=== PATIENT | male | born 1975 | race Caucasian/White ===

== ENCOUNTER 2021-10-12 10:45 | Emergency (ER) | payer OTHER ==
[~2021-10-12] VITALS: Ht 182.9 cm; Wt 147.4 kg
[~2021-10-12 10:45] MED LIST: ATIVAN1 MG PO; AUGMENTIN 875-1 EACH PO; CENTANY30 GM TP; COPAXONE40 MG/1 ML SQ; FENOFIBRIC ACI135 MG PO; FISH OIL 1,001000 M2 PO; FOLIC ACID0.8 MG PO; GABAPENTIN 100100 MG PO; JANUVIA 50 MG T50 M1 PO; LIORESAL 10 MG10 MG PO; METOPROLOL ER-1 EAC1 PO; MOBIC15 MG PO; NATEGLINIDE120 MG PO; NORCO 5-325 TA1 EACH PO; PAXIL10 MG PO; PIOGLITAZONE15 MG; PRILOSEC 20 MG20 MG PO; VITAMIN D 5050000 I1 PO; ZOFRAN ODT4 MG PO
[2021-10-12] MEDS ORDERED: [UNRECOGNIZED DRUG - OTHER] (11:05)
[2021-10-12] MEDS ORDERED: JANTOVEN5 MG PO (11:06)
[2021-10-12] MEDS ORDERED: COZAAR 25 MG TA25 M1 PO (11:07)
[2021-10-12] MEDS ORDERED: BUPROPION HCL100 MG PO (11:07)
[2021-10-12] MEDS ORDERED: OZEMPIC1 MG/0.71 SUBQ (11:07)
[2021-10-12] MEDS ORDERED: DILTIAZEM ER180 M2 PO (11:07)
[2021-10-12] MEDS ORDERED: APAP W/CODEINE1 TA2 PO (11:08)
[2021-10-12] MEDS ORDERED: PENICILLIN V P500 MG PO (12:06)
[2021-10-12] MEDS ORDERED: ZOFRAN ODT4 MG PO (12:06)
[2021-10-12] MEDS ORDERED: HYDROCODON-ACE1 EAC7 PO (12:08)
[2021-10-12 12:21] VITALS: BP 151/89
[2021-10-12 12:25] LABS: INFLUENZA A ANTIGEN Negative (Negative); INFLUENZA B ANTIGEN Negative (Negative)
== END 2021-10-12 12:22 | disposition home or self-care (01) ==
LOC: M.ERS 10:45
PROVIDERS: Nurse Practitioner Family
DX: K04.7 Periapical abscess without sinus (principal); Z20.822 Contact with and (suspected) exposure to COVID-19; J02.9 Acute pharyngitis, unspecified; E11.9 Type 2 diabetes mellitus without complications; I10 Essential (primary) hypertension; F41.9 Anxiety disorder, unspecified; K21.9 Gastro-esophageal reflux disease without esophagitis; Z79.899 Other long term (current) drug therapy; Z79.01 Long term (current) use of anticoagulants; Z88.8 Allergy status to other drugs, medicaments and biological substances; Z88.1 Allergy status to other antibiotic agents